=== PATIENT | male | born 1975 | race Caucasian/White ===

== ENCOUNTER 2018-04-04 11:32 | Outpatient (CLI) | payer BC ==
[2018-04-04 11:45] LABS: MEAN CORPUSCULAR HEMOGLOBIN 27.6 pg (28.0-34.0); MEAN CORPUSCULAR VOLUME 82.8 fl (80.0-100.0)
[2018-04-04 11:46] LABS: MONOCYTES % 4.5 % (0.0-11.0)
[2018-04-04 11:47] LABS: BASOPHILS % 0.7 (0.0-1.5); EOSINOPHILS % 6.8 % (0.0-6.8); NEUTROPHILS # 6.7 # k/uL (1.4-7.7)
[2018-04-04 12:12] LABS: eGFR (African) > 60; eGFR (Non-African) > 60
== END 2018-04-04 11:40 ==
LOC: LAB 11:32
PROVIDERS: ATTEND Family Medicine
DX: E11.9 Type 2 diabetes mellitus without complications (principal); R11.2 Nausea with vomiting, unspecified
CPT/HCPCS: 36415; 80053; 80061; 83036; 85025

== ENCOUNTER 2019-03-31 12:18 | Emergency (ER) | payer BC | END 2019-03-31 13:20 | LOC: ED 12:18 | DX: S81.802A Unspecified open wound, left lower leg, initial encounter (principal); X50.9XXA Other and unspecified overexertion or strenuous movements or postures, initial encounter | CPT/HCPCS: 99281; 99282 ==

== ENCOUNTER 2019-06-28 17:13 | Emergency (ER) | payer BC ==
--- NOTE | 2019-06-28 17:19 | ED Physician Documentation ---
General Adult - HISTORIAN Historian: patient - HPI Stated Complaint: cyst area on right side of face 10 years Chief Complaint: General Adult Onset: other (10 years) Timing: still present Severity: mild Further Comments: yes (area of skin concern on right side of face for over 10 years although he states over last two days he has had pain in the area. No d rainage. "I was hoping you would just cut it out after its been there for so long" no fever. No OTC meds have been taken for pain) Last known Well Code/Unknown Code: Unknown - ROS CONST: no problems MS/SKIN/LYMPH: other (area of skin concern ) - PAST HX Past History: other (DM2 ) Immunizations: UTD Allergies/Adverse Reactions: Allergies Allergy/AdvReac Type Severity Reaction Status Date / Time No Known Drug Allergies Allergy Unverified 05/13/13 16:05 Home Medications: Ambulatory Orders Medication Instructions Recorded Ibuprofen 600 - 1,200 mg PO HS u2 09/01/14 Melatonin/Pyridoxine [Melatonin 5 3 each PO HS u2 09/01/14 Mg Tablet] - SOCIAL HX Smoking History: cigarettes Alcohol Use: none Drug Use: none - FAMILY HX Family History: No - REVIEWED ASSESSMENTS Nursing Assessment Reviewed: Yes Vitals Reviewed: Yes General Adult Physical Exam - PHYSICAL EXAM GENERAL APPEARANCE: no distress EENT: eye inspection normal, no signs of dehydration NECK: normal inspection RESPIRATORY: no resp distress, chest non-tender, breath sounds normal CVS: reg rate & rhythm, heart sounds normal ABDOMEN: soft SKIN: warm/dry, other (right side of face with a 2 cm raised area with mild lateral redness> He reports the raised area is the same for years. The redness is new. NO drainage noted . ) EXTREMITIES: non-tender, normal range of motion NEURO: oriented X3 Discharge Clincal Impression: Cellulitis and abscess of face Referrals: Lissy Washington MD [Primary Care Provider] - 2 Days Comments: 1. Clindamycin 300 mg take 1 by mouth three times per day x 10 days 2. Follow up with PCP in 2-4 days for referral for removal 3. OTC meds as directed as needed for symptom relief 4. Return to ER for any increasing concerns Condition: Stable Decision to Admit: NO Date of Decison to Admit: 06/28/19 Decision Time: 17:37
[2019-06-28 17:35] VITALS: BP 142/83
== END 2019-06-28 17:43 ==
LOC: ED 17:13
DX: L03.211 Cellulitis of face (principal); L02.01 Cutaneous abscess of face
CPT/HCPCS: 99283; 99284

== ENCOUNTER 2019-09-13 12:13 | Emergency (ER) | payer SELFPAY ==
[2019-09-13 12:28] VITALS: BP 135/82
[2019-09-13] MEDS ORDERED: Lidocaine 1% 5ml 10 MG/ML VIAL IM ONE (12:49)
[2019-09-13] MEDS ORDERED: methylPREDNISolone SOD SUCC 125 MG/2 ML VIAL IM ONE (12:49)
[2019-09-13] MEDS ORDERED: cefTRIAXone SODIUM 1 GM in Lidocaine 1% 5ml 2.1 ML IM ONE (12:49)
--- NOTE | 2019-09-13 12:51 | ED Physician Documentation ---
Skin Rash - HISTORIAN Historian: patient - HPI Stated Complaint: rash bilateral hands Chief Complaint: Skin Rash Additional Information: Patient presents to ED with rash to both hands x several days. Patient reports the rash started the day after he came in contact with sanitizing agent at work. Patient report the rash has become very painful and the skin has begun to slough off. Onset: days ago (2) Timing: worse Duration: worse Location: RUE (hands), LUE (hands) Quality: painful, burning Identified Cause?: Yes (sanitizing agent at work) Where: work Context: Medication Exposure: other (cleaning chemicals) Context: Food Exposure: none - ROS CONST: none CVS/RESP: none EYES/ENT: none GI/: none MS/SKIN/LYMPH: none NEURO/PSYCH: none - PAST HX Past History: none Other History: none Surgeries/Procedures: No Allergies/Adverse Reactions: Allergies Allergy/AdvReac Type Severity Reaction Status Date / Time No Known Drug Allergies Allergy Verified 09/13/19 12:23 Home Medications: Ambulatory Orders Medication Instructions Recorded Cephalexin [Keflex] 500 mg PO QID #40 capsule 09/13/19 Triamcinolone 0.1% Cream [Kenalog 80 gm TP QID #1 tube 09/13/19 0.1% Cream] - SOCIAL HX Smoking History: non-smoker Alcohol Use: none Drug Use: none - FAMILY HX Family History: none - VITAL SIGNS Vital Signs: Vital Signs Temp Pulse Resp BP Pulse Ox 97.6 F 92 H 20 135/82 98 09/13/19 12:25 09/13/19 12:25 09/13/19 12:25 09/13/19 12:25 09/13/19 12:25 - REVIEWED ASSESSMENTS Nursing Assessment Reviewed: Yes Vitals Reviewed: Yes ED Results Lab/Radiology - Orders Orders: ED Orders Category Date Time Status Lidocaine 1% 5ml [Xylocaine] Med 09/13/19 12:49 Once 50 mg IM NOW ONE cefTRIAXone SODIUM [Rocephin] 1 gm Med 09/13/19 12:49 Ordered Lidocaine 1% 5ml [Xylocaine] 2.1 ml IM NOW methylPREDNISolone SOD SUCC [SOLU-Medrol] Med 09/13/19 12:49 Once 125 mg IM NOW ONE Skin Rash Physical Exam - EXAM General Appearance: no acute distress, alert Skin: warm,dry, tender indurated area, skin rash, erythema Location: extremities (bilateral hands/wrist) Character: asymmetric, erythematous, other (sloughing of skin) Symptoms: warmth, tenderness, swelling, induration, thickening, weeping, inflammation, crusting, rough texture Extremities: nml ROM, edema, hands EENT: eyes nml inspection Respiratory: no resp distress, breath sounds normal CVS: reg. rate & rhythm, heart sounds nml Abdomen: non-tender Neuro/Psych: oriented x3, CN's nml as tested, mood/affect nml Discharge Clincal Impression: Atopic dermatitis Qualifiers: Atopic dermatitis type: unspecified Qualified Code(s): L20.9 - Atopic dermatitis, unspecified Prescriptions: Cephalexin [Keflex] 500 mg PO QID #40 capsule Triamcinolone 0.1% Cream [Kenalog 0.1% Cream] 80 gm TP QID #1 tube Referrals: Lissy Washington MD [Primary Care Provider] - 2 Days Additional Instructions: 1. Take antibiotics until gone. Start on 09/14/19 2. Apply Triamcinlone Topical steroid every 6 hours until skin has completely healed 3. Apply Eucerin lotion to hands every 6 hours 4. Topical benedryl as needed for itching 5. Take Benedryl 50mg by mouth at bedtime 6. Avoid skin contact with the cleaning solution which triggered your rash 7. Follow up with PCP within 1 week 8. Return to ER for new or worsening symptoms Condition: Stable Decision to Admit: NO Date of Decison to Admit: 09/13/19 Decision Time: 13:01
== END 2019-09-13 13:09 ==
LOC: ED 12:13
DX: L20.9 Atopic dermatitis, unspecified (principal)
CPT/HCPCS: 96372; 99284; J0696; J2930

== ENCOUNTER 2019-10-08 15:11 | Emergency (ER) | payer SELFPAY ==
[2019-10-08] MEDS ORDERED: DIPH,PERTUSS(ACELL),TET VAC/PF 0.5 ML DISP.SYRIN IM ONE (15:31)
[2019-10-08] MEDS ORDERED: HYDROcodone /APAP 5/325 1 EACH TABLET PO ONE (15:34)
[2019-10-08] MEDS ORDERED: LIDOCAINE HCL 1% MDV 200MG/20ML VIAL IM ONE (15:34)
--- NOTE | 2019-10-08 15:36 | ED Physician Documentation ---
General Adult - HISTORIAN Historian: patient - HPI Stated Complaint: laceation right hand Chief Complaint: Laceration/Recheck/Suture Additional Information: Patient present to ED with laceration to right hand after punching a mirror. He is not current on tetanus. Onset: minutes (30) Timing: still present Severity: moderate - ROS CONST: no problems EYES/ENT: none CVS/RESP: none GI/: none MS/SKIN/LYMPH: none NEURO/PSYCH: denies: headache - PAST HX Past History: none Other History: diabetes Type 2 Surgeries/Procedures: none Allergies/Adverse Reactions: Allergies Allergy/AdvReac Type Severity Reaction Status Date / Time No Known Drug Allergies Allergy Verified 10/08/19 15:41 Home Medications: Ambulatory Orders Medication Instructions Recorded NK 10/08/19 - SOCIAL HX Smoking History: cigarettes, greater than 1 pack/day Alcohol Use: none Drug Use: methamphetamines - FAMILY HX Family History: No - VITAL SIGNS Vital Signs: Vital Signs Temp Pulse Resp BP Pulse Ox 98.3 F 115 H 24 158/88 96 10/08/19 15:15 10/08/19 15:15 10/08/19 15:15 10/08/19 15:15 10/08/19 15:15 - REVIEWED ASSESSMENTS Nursing Assessment Reviewed: Yes Vitals Reviewed: Yes Procedures Wound Location: upper extremity (right hand dorsal) Wound Length: 5 cm, 7 cm Wound's Depth, Shape: superficial, irregular, flap Wound Explored: clean Betadine Prep?: Yes Anesthesia: 1% Lidocaine Volume of Anesthetic: 10 Wound Debrided: minimal Wound Repaired With: sutures Suture Size/Type: 5:0 Number of Sutures: 12 Sterile Dressing Applied?: Yes Splint Applied?: No Sling Applied?: No ED Results Lab/Radiology - Radiology Radiology Impressions: eport Submission Date: Oct 08, 2019 4:01:15 PM [facility] Patient Study Name: OLIVIRE MAGALLON Date: Oct 08, 2019 3:42:21 PM [facility] Modality Type: DX Gender: M Description: HAND 3 VIEWS OR MORE : 79 Institution: [facility] Physician: ISMAEL GALDAMEZ HAND 3 VIEWS OR MORE History: PATIENT STATES RIGHT HAND PAIN, SWELLING AND LACERATIONS AFTER PUNCHING AN INANIMATE OBJECT ABOUT 1 HOUR AGO Findings: The osseous structures are intact without acute fracture. The joint space and alignment are normal. There is no soft tissue swelling. Impression: 1. No acute osseous abnormality. Electronically signed on Oct 08, 2019 4:01:15 PM [facility] by: Aren Rebolledo - Orders Orders: ED Orders Category Date Time Status HAND XRAY [HAND 3 VIEWS OR MORE] [RAD] Stat Exams 10/08/19 Completed Diph,Pertuss(Acell),Tet Vac/Pf [Adacel] Med 10/08/19 15:31 Discontinued 0.5 ml IM .ONCE ONE HYDROcodone /APAP 5/325 [[place] 5/325] Med 10/08/19 15:34 Discontinued 2 each PO NOW ONE Lidocaine 1% 20ml ([place]) [Xylocaine] Med 10/08/19 15:34 Discontinued 10 mg IM NOW ONE Sulfamethoxazole/Trimethoprim [Bactrim Ds] Med 10/08/19 16:49 Once 1 each PO NOW ONE General Adult Physical Exam - PHYSICAL EXAM GENERAL APPEARANCE: no distress EENT: KAR[place] NECK: supple RESPIRATORY: no resp distress, breath sounds normal CVS: reg rate & rhythm, heart sounds normal ABDOMEN: soft, normal bowel sounds BACK: normal inspection EXTREMITIES: non-tender, no edema NEURO: oriented X3, mood/affect nml Discharge Clincal Impression: Laceration of left hand Qualifiers: Encounter type: initial encounter Foreign body presence: without foreign body Qualified Code(s): S61.412A - Laceration without foreign body of left hand, initial encounter Referrals: Lissy Washington MD [Primary Care Provider] - 2 Days Additional Instructions: 1. Wash laceration twice daily with antibacterial soap, apply triple antibiotic ointment and cover with bandage 2. Take antibiotic until gone 3. Tylenol 650mg every 4 hours and/or Ibuprofen 600mg every 6 hours as needed for pain. These may be taken together for better pain control 4. Smoking inhibits skin healing. Try to cut back or stop. 5. Follow up with PCP within 10-14 days for suture removal 6. Return to ER for new or worsening symptoms. Condition: Stable Disposition: 01 HOME, SELF-CARE Decision to Admit: NO Date of Decison to Admit: 10/08/19 Decision Time: 16:55
--- NOTE | 2019-10-08 16:07 | Diagnostic Imaging Report ---
PATIENT MR#: [id number] PATIENT PATIENT NAME: OLIVIER MAGALLON DATE OF : 1975 REFERRING PHYSICIAN: Madeline Russo EXAM DATE: 10/08/2019 ACCESSION NUMBER: [id number] EXAM DESCRIPTION: HAND 3 VIEWS OR MORE HAND 3 VIEWS OR MORE History: PATIENT STATES RIGHT HAND PAIN, SWELLING AND LACERATIONS AFTER PUNCHING AN INANIMATE OBJECT ABOUT 1 HOUR AGO Findings: The osseous structures are intact without acute fracture. The joint space and alignment are normal. There is no soft tissue swelling. Impression: 1. No acute osseous abnormality. Read by: Dr. Aren Rebolledo Transcribed by: Transcribed Date: Electronically signed by: Dr. Aren Rebolledo Date signed: 10/08/2019 4:06:01 PM
[2019-10-08] MEDS ORDERED: SULFAMETHOXAZOLE/TRIMETHOPRIM 800/160MG TAB PO ONE (16:49)
[2019-10-08 17:29] VITALS: BP 146/90
== END 2019-10-08 17:10 | disposition home or self-care (01) ==
LOC: ED 15:11
DX: S61.411A Laceration without foreign body of right hand, initial encounter (principal); W22.09XA Striking against other stationary object, initial encounter
CPT/HCPCS: 12004; 90471; 90715; 96372; 99282; 99284; A9270; A9270-GY